=== PATIENT | male | born 1995 | race African-American/Black ===

== ENCOUNTER 2018-12-07 10:14 | Emergency (ER) | payer MEDICAID ==
[2018-12-07 10:26] VITALS: BP 120/77; PULSE 67; O2SAT 98
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
[2018-12-07 10:54] LABS: Amphetamine,Urine NEGATIVE (NEGATIVE); Barbiturate,Urine NEGATIVE (NEGATIVE); Benzodiazepine,Urine POSITIVE (NEGATIVE); Cocaine,Urine NEGATIVE (NEGATIVE); Methadone,Urine NEGATIVE (NEGATIVE); Opiate,Urine NEGATIVE (NEGATIVE); PCP,Urine NEGATIVE (NEGATIVE); THC,Urine POSITIVE (NEGATIVE)
== END 2018-12-07 11:32 | disposition home or self-care (01) ==
LOC: ED 10:14
DX: Z02.89 Encounter for other administrative examinations (principal); F12.90 Cannabis use, unspecified, uncomplicated; F15.90 Other stimulant use, unspecified, uncomplicated; Z72.89 Other problems related to lifestyle
CPT/HCPCS: 80307; 93005; 99283